=== PATIENT | female | born 1945 | race Caucasian/White ===

== ENCOUNTER 2017-10-22 12:45 | Emergency (ER) | payer OTHER ==
[2017-10-22 13:28] VITALS: BP 169/87; PULSE 82; TEMP 98.8; BMI 25.0
--- NOTE | 2017-10-22 13:36 | PDOC ---
History of Present Illness - General Chief Complaint: Cold Symptoms Stated Complaint: COLD SYMPTYOMS Time Seen by Provider: 10/22/17 13:23 - History of Present Illness Initial Comments: 10/22/17 13:36 Chief complaint: Cough History of present illness: Patient with URI symptoms and nonproductive cough for several days. Began Z-Saurav yesterday. Also taking promethazine with codeine, Mucinex. Review of systems: No chest pain, shortness of breath, abdominal pain, nausea, vomiting, diarrhea, visual or focal neurologic symptoms, unsteadiness of gait. Social/family history reviewed and noncontributory Physical exam: Alert and oriented well-developed well-nourished no acute distress cheerful and cooperative. No tachypnea or dyspnea. Temperature 98.8, respiratory rate 16 and unlabored, O2 saturation 98%. Slightly elevated blood pressure but otherwise vital signs are stable HEENT clear Neck supple without bruit mass or nodes Chest clear to P&A with full breath sounds throughout bilaterally. No wheezes rales or rhonchi. No tachypnea or dyspnea CV S1 and S2 normal without murmur rub or gallop pulses full and symmetric no JVD or edema no tachycardia Abdomen benign Skin clear, no rash, adequate turgor and wet mucous membranes Semis no CCE Neurological intact Impression: Probable viral bronchitis, patient began Z-Saurav yesterday, second dose scheduled for today. She is taking promethazine with codeine cough preparation, as well as Mucinex. She appears to be stable respiratory status Plan: Continue as directed. Expectorant, and cough preparation as needed. Return to ER if there is fever, chest pain, shortness of breath, or other respiratory symptoms. Follow-up with Dr. Carrera in 2 or 3 days. Fully ambulatory and in no distress, respiratory or otherwise, at discharge with her to follow-up as recommended Past History - Past Medical History Allergies/Adverse Reactions: Allergies Allergy/AdvReac Type Severity Reaction Status Date / Time acetaminophen [From Percocet] Allergy Intermediate vomiting Unverified 05/12/13 17:29 latex Allergy Intermediate rash Unverified 05/12/13 17:30 oxycodone HCl [From Percocet] Allergy Intermediate vomiting Unverified 05/12/13 17:29 Home Medications: Ambulatory Orders Aspirin 81 mg PO DAILY 07/13/16 Cholecalciferol (Vitamin D3) [Vitamin D3] 2,000 unit PO 2 daily tablet Glucosam/Chond/Collagen/Hyalur [Glucosamine Chondroitin Cap] 1 each PO DAILY capsule 11/23/16 Azithromycin [Zithromax -] 250 mg PO UTDICT 10/22/17 Cetirizine HCl [Zyrtec -] 10 mg PO DAILY PRN 10/22/17 Fluticasone Prop 0.05% Nasal [Flonase -] 1 - 2 spray NS BID PRN 10/22/17 Guaifenesin [Mucinex] 1,200 mg PO BID PRN 10/22/17 Promethazine HCl/Codeine [Prometh-Codein 6.25-10 mg/5 ml] 5 ml PO QID PRN COPD: No HTN: Yes Hypercholesterolemia: Yes - Suicide/Smoking/Psychosocial Hx Smoking History: Never smoked Hx Alcohol Use: Yes Drug/Substance Use Hx: No Substance Use Type: None *Physical Exam - Vital Signs Last Vital Signs Temp Pulse Resp BP Pulse Ox 98.8 F 82 16 169/87 98 10/22/17 13:19 10/22/17 13:19 10/22/17 13:19 10/22/17 13:19 10/22/17 13:19 *DC/Admit/Observation/Transfer Diagnosis at time of Disposition: Acute bronchitis Qualifiers: Bronchitis organism: unspecified organism Qualified Code(s): J20.9 - Acute bronchitis, unspecified - Discharge Dispostion Disposition: HOME Condition at time of disposition: Stable Admit: No - Referrals Referrals: Kristofer Echevarria MD [Primary Care Provider] - 3 days - Patient Instructions Printed Discharge Instructions: DI for Acute Bronchitis Additional Instructions: Rest, fluids, Tylenol or Motrin, antibiotics as directed, expectorant and cough syrup as needed. Return to ER if there is high fever, chest pain, shortness of breath, or other difficulty breathing. Otherwise follow-up with primary physician in 2-3 days. - Post Discharge Activity
== END 2017-10-22 13:43 | disposition home or self-care (01) ==
LOC: FER 12:45
DX: J20.9 Acute bronchitis, unspecified (principal); I10 Essential (primary) hypertension; E78.00 Pure hypercholesterolemia, unspecified
CPT/HCPCS: 99281-25

== ENCOUNTER 2017-12-28 08:12 | Emergency (ER) | payer OTHER ==
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
[2017-12-28 08:29] VITALS: BP 178/88; PULSE 72; TEMP 98.1
== END 2017-12-28 10:12 | disposition home or self-care (01) ==
LOC: FER 08:12
PROC: 2W3KX1Z Immobilization of Left Finger using Splint (ICD-10-PCS; principal; 2017-12-28)
DX: S63.637A Sprain of interphalangeal joint of left little finger, initial encounter (principal); X58.XXXA Exposure to other specified factors, initial encounter; Y93.89 Activity, other specified; Y92.9 Unspecified place or not applicable; I10 Essential (primary) hypertension; E78.00 Pure hypercholesterolemia, unspecified
CPT/HCPCS: 73140-TC-LT-FY; 99282-25

== ENCOUNTER 2018-09-01 12:53 | Emergency (ER) | payer OTHER ==
[2018-09-01 12:58] VITALS: BP 152/80; PULSE 77; TEMP 98.2; BMI 25.2
--- NOTE | 2018-09-01 13:30 | PDOC ---
History of Present Illness - General Chief Complaint: Respiratory Stated Complaint: COUGH, THROAT PAIN Time Seen by Provider: 09/01/18 13:29 - History of Present Illness Initial Comments: 09/01/18 14:14 Chief complaint: Sore throat History of present illness: Severe sore throat since yesterday. Worse in the morning, improving during the day. No fever/chills. No difficulty swallowing or breathing. No cough or chest pain. Received a flu vaccine early in July. Review of systems: As noted above, in addition, no shortness of breath, abdominal pain, nausea, vomiting, diarrhea, urinary tract symptoms, vaginal bleeding or discharge, visual or focal neurologic symptoms. Remainder systems reviewed and found to be negative Past medical history: Mild hypertension, elevated cholesterol, takes baby aspirin for prophylaxis. History of pneumonia in the past, and seasonal bronchitis Social/family history reviewed and noncontributory Physical exam: Alert and oriented well-developed well-nourished no acute distress cheerful and cooperative Afebrile, vital signs normal HEENT: The throat appears clear. There is no erythema, exudate, swelling, mass, conjunctivae, ears, nose clear Neck supple without bruit mass or nodes Lungs clear with full breath sounds throughout bilaterally. Respiratory rate 12 and unlabored. Oxygen saturation 100%. No sign of tachypnea or dyspnea CV regular without murmur rub or gallop Abdomen benign Skin clear, no rash, good turgor and wet mucous membranes Impression: Viral URI, unlikely influenza due to recent vaccination as well as absence of systemic symptoms. No sign of lower respiratory disease Plan: Throat culture and further medical management depending on results. 09/01/18 14:34 Past History - Past Medical History Allergies/Adverse Reactions: Allergies Allergy/AdvReac Type Severity Reaction Status Date / Time latex Allergy Intermediate rash Verified 09/01/18 12:55 oxycodone HCl [From Percocet] Allergy Intermediate vomiting Verified 09/01/18 12 :55 Home Medications: Ambulatory Orders Cholecalciferol (Vitamin D3) [Vitamin D3] 2,000 unit PO 2 daily tablet Glucosam/Chond/Collagen/Hyalur [Glucosamine Chondroitin Cap] 1 each PO DAILY capsule 11/23/16 Aspirin [ASA -] 81 mg PO DAILY 12/28/17 Ibuprofen 600 mg PO QID PRN #20 tablet 11/11/18 COPD: No HTN: Yes Hypercholesterolemia: Yes - Surgical History Appendectomy: Yes - Suicide/Smoking/Psychosocial Hx Smoking History: Never smoked Have you smoked in the past 12 months: No Information on smoking cessation initiated: No Hx Alcohol Use: (nightly) Drug/Substance Use Hx: No Substance Use Type: None *Physical Exam - Vital Signs Last Vital Signs Temp Pulse Resp BP Pulse Ox 98.2 F 77 18 152/80 96 09/01/18 12:53 09/01/18 12:53 09/01/18 12:53 09/01/18 12:53 09/01/18 12:53 Medical Decision Making - Medical Decision Making 09/01/18 14:35 Throat culture negative Most likely viral pharyngitis, mild, no evidence of lower respiratory infection Symptomatic treatment and follow-up. *DC/Admit/Observation/Transfer Diagnosis at time of Disposition: Viral pharyngitis - Discharge Dispostion Disposition: HOME Condition at time of disposition: Stable Decision to Admit order: No - Prescriptions Prescriptions: Ibuprofen 600 mg PO QID PRN #20 tablet PRN Reason: Pain - Referrals Referrals: Kristofer Echevarria MD [Primary Care Provider] - 3 days - Patient Instructions Printed Discharge Instructions: DI for Viral Pharyngitis - Post Discharge Activity Forms/Work/School Notes: Back to Work
[2018-09-01] MEDS ORDERED: IBUPROFEN 600 MG TABLET (FP) PO ONE ×2 (14:32→14:41)
== END 2018-09-01 14:50 | disposition home or self-care (01) ==
LOC: FER 12:53
DX: J02.8 Acute pharyngitis due to other specified organisms (principal); B97.89 Other viral agents as the cause of diseases classified elsewhere; I10 Essential (primary) hypertension; E78.00 Pure hypercholesterolemia, unspecified
CPT/HCPCS: 87070; 87430; 99283-25

== ENCOUNTER 2021-09-22 01:05 | Inpatient (IN) | payer OTHER ==
[2021-09-22] MEDS ORDERED: ACETAMINOPHEN 1000 MG/100 ML BAG IVPB ONE (01:52)
[2021-09-22] MEDS ORDERED: SODIUM CHLORIDE 0.9% 1000 ML INFUS.BAG IV ONE (01:52)
[2021-09-22] MEDS ORDERED: ONDANSETRON 4 MG/2 ML VIAL IVPUSH ONE ×2 (01:52→05:17)
[2021-09-22] MEDS ORDERED: ONDANSETRON 4 MG/2 ML VIAL ONE (02:05)
[2021-09-22] MEDS ORDERED: ACETAMINOPHEN INJECTION 100 ML IVPB ONE (02:05)
[2021-09-22 02:17] LABS: EPI CELLS 4 /uL (0-25.1); HYALINE CASTS 1 /uL (0-3.1); URINE APPEARANCE CLOUDY; URINE BACTERIA 7 /uL (0-1359); URINE BILIRUBIN NEGATIVE (NEGATIVE); URINE COLOR ORANGE; URINE GLUCOSE (UA) NEGATIVE (NEGATIVE); URINE KETONE TRACE (NEGATIVE); URINE LEUK ESTERASE TRACE (NEGATIVE); URINE NITRITE NEGATIVE (NEGATIVE); URINE PROTEIN 1+ (NEGATIVE); URINE RBC 3777 /uL (0-23.9); URINE UROBILINOGEN 0.2 mg/dL (0.2-1.0); URINE WBC 34 /uL (0-25.8)
[2021-09-22 02:27] LABS: HEMATOCRIT 41.5 % (32.4-45.2); MCH 31.9 pg (25.7-33.7); MCHC 33.7 g/dl (32.0-36.0); MEAN CELL VOLUME 94.7 fl (80-96); MEAN PLT VOLUME 7.8 fl (7.5-11.1); PLATELET COUNT 203 10^3/uL (134-434); RBC 4.38 M/mm3 (3.60-5.2); RDW 13.3 % (11.6-15.6); WHITE BLOOD COUNT 10.9 K/mm3 (4.0-10.0)
[2021-09-22 02:35] LABS: PROTHROMBIN TIME (PATIENT) 11.2 SEC (9.7-13.0)
[2021-09-22 02:37] LABS: ACTIVATED PTT 27.9 SECONDS (25.2-36.5)
[2021-09-22 02:48] LABS: CHLORIDE 109 mmol/L (98-107); SODIUM 144 mmol/L (136-145)
[2021-09-22 02:52] LABS: ALBUMIN 3.5 g/dl (3.4-5.0); ANION GAP 11 MMOL/L (8-16); BLOOD UREA NITROGEN 24.3 mg/dL (7-18); CALCIUM 9.9 mg/dL (8.5-10.1); CO2 24 mmol/L (21-32); GLUCOSE,RANDOM 128 mg/dL (74-106); LIPASE 220 U/L (73-393)
[2021-09-22 02:55] LABS: CREATININE 1.2 mg/dL (0.55-1.3); SGOT/AST 23 U/L (15-37); SGPT/ALT 29 U/L (13-61)
[2021-09-22 02:57] LABS: BILIRUBIN,TOTAL 0.4 mg/dL (0.2-1); TOT PROT 7.4 g/dl (6.4-8.2)
[2021-09-22 02:58] LABS: ALK PHOS 89 U/L (45-117)
[2021-09-22] MEDS ORDERED: CEFTRIAXONE 1,000 MG in DEXTROSE 5%-WATER - 50 ML IVPB ONE (03:39)
[2021-09-22] MEDS ORDERED: CEFTRIAXONE 1 GM/50 ML BAG ONE (03:48)
[2021-09-22] MEDS ORDERED: SODIUM CHLORIDE 1,000 ML IV SCH (05:15)
[2021-09-22] MEDS ORDERED: ONDANSETRON 4 MG/2 ML VIAL IVPUSH PRN (05:17)
[2021-09-22] MEDS ORDERED: TAMSULOSIN HCL 0.4 MG CAP PO ONE (05:18)
[2021-09-22] MEDS ORDERED: TAMSULOSIN HCL 0.4 MG CAP ONE ×2 (05:24→10:58)
[2021-09-22 06:23] LABS: OVALOCYTE 1+; TEAR DROP CELLS 1+
[2021-09-22] MEDS ORDERED: ENOXAPARIN NA (PORCINE) 40 MG/0.4 ML DISP.SYRIN SQ SCH (10:00)
[2021-09-22] MEDS: TAMSULOSIN HCL 0.4 MG CAP PO SCH (10:59)
[2021-09-22] MEDS: LACTATED RINGERS SOLUTION 1,000 ML/1,000 ML INFUS.BAG IV SCH (11:02)
[2021-09-22] MEDS: QUINAPRIL HCL 20 MG TABLET PO SCH (11:16)
[2021-09-22 14:04] VITALS: BMI 24.9
[2021-09-22] MEDS: KETOROLAC TROMETHAMINE 15 MG/ML VIAL IVPUSH PRN (19:18)
[2021-09-23] MEDS: LACTATED RINGERS SOLUTION 1,000 ML/1,000 ML INFUS.BAG IV SCH ×2 (01:11→17:47)
[2021-09-23] MEDS: KETOROLAC TROMETHAMINE 15 MG/ML VIAL IVPUSH PRN (08:57)
[2021-09-23] MEDS: TAMSULOSIN HCL 0.4 MG CAP PO SCH (08:59)
[2021-09-23 09:59] LABS: BASO % 0.2 % (0-2.0); EOS % 0.8 % (0-4.5); HEMATOCRIT 37.4 % (32.4-45.2); HEMOGLOBIN 12.7 GM/dL (10.7-15.3); LYMPH % 9.8 % (8-40); MCH 32.5 pg (25.7-33.7); MCHC 33.9 g/dl (32.0-36.0); MEAN CELL VOLUME 95.8 fl (80-96); MEAN PLT VOLUME 8.2 fl (7.5-11.1); MONO % 7.4 % (3.8-10.2); NEUT % 81.8 % (42.8-82.8); PLATELET COUNT 178 10^3/uL (134-434); RDW 13.4 % (11.6-15.6); WHITE BLOOD COUNT 9.4 K/mm3 (4.0-10.0)
[2021-09-23 10:39] LABS: CALCIUM 9.6 mg/dL (8.5-10.1)
[2021-09-23 10:43] LABS: BLOOD UREA NITROGEN 19.7 mg/dL (7-18); CREATININE 1.3 mg/dL (0.55-1.3); PHOSPHOROUS 2.9 mg/dL (2.5-4.9)
[2021-09-23] MEDS ORDERED: GLYCERIN 1 RECTAL SUPPOSITORY, ADULT RC ONE (10:45)
[2021-09-23] MEDS ORDERED: cefTRIAXone SODIUM 1 GM VIAL ONE (11:31)
[2021-09-23] MEDS ORDERED: DEXTROSE 5%-WATER - 50 ML IVPB ONE (11:31)
[2021-09-23] MEDS: CEFTRIAXONE 1 GM in DEXTROSE 5%-WATER - 50 ML IVPB SCH (11:45)
[2021-09-23] MEDS: QUINAPRIL HCL 20 MG TABLET PO SCH (11:45)
[2021-09-23] MEDS ORDERED: MIDAZOLAM HCL 2 MG/2 ML SINGLE DOSE VIAL ONE (13:20)
[2021-09-23] MEDS ORDERED: ONDANSETRON 4 MG/2 ML VIAL IVPUSH PRN (13:23)
[2021-09-23] MEDS ORDERED: LACTATED RINGERS SOLUTION 1,000 ML IV SCH (13:30)
[2021-09-23] MEDS ORDERED: DEXAMETHASONE SOD PHOSPHATE 4 MG/1 ML VIAL ONE (13:58)
[2021-09-23] MEDS ORDERED: PROPOFOL 20 ML ONE (13:58)
[2021-09-23] MEDS ORDERED: LIDOCAINE HCL/PF 2% SDV 5ML VIAL ONE (13:58)
[2021-09-23] MEDS ORDERED: KETOROLAC TROMETHAMINE 30 MG/1 ML VIAL ONE (13:58)
[2021-09-23] MEDS: ACETAMINOPHEN 1000 MG/100 ML BAG IVPB ONE ×2 (15:05→18:40)
[2021-09-23] MEDS: LACTATED RINGERS SOLUTION 1,000 ML IV SCH (18:57)
[2021-09-23] MEDS: ATORVASTATIN CA 10 MG TABLET (FP) PO SCH ×2 (21:57→22:02)
[2021-09-24] MEDS: LACTATED RINGERS SOLUTION 1,000 ML IV SCH (02:56)
[2021-09-24] MEDS ORDERED: PRAVASTATIN SODIUM PO SCH (10:00)
[2021-09-24] MEDS ORDERED: PT OWN MED DRAWER 7, Y5N ONE (10:14)
[2021-09-24] MEDS ORDERED: cefTRIAXone SODIUM 1 GM VIAL ONE (10:15)
[2021-09-24] MEDS ORDERED: DEXTROSE 5%-WATER - 50 ML IVPB ONE (10:15)
[2021-09-24] MEDS: TAMSULOSIN HCL 0.4 MG CAP PO SCH (11:10)
[2021-09-24] MEDS: QUINAPRIL HCL 20 MG TABLET PO SCH (11:10)
[2021-09-24] MEDS: CEFTRIAXONE 1 GM in DEXTROSE 5%-WATER - 50 ML IVPB SCH (11:11)
[2021-09-24 11:17] LABS: BASO % 0.2 % (0-2.0); EOS % 0.2 % (0-4.5); HEMATOCRIT 38.4 % (32.4-45.2); HEMOGLOBIN 13.1 GM/dL (10.7-15.3); LYMPH % 12.4 % (8-40); MCH 32.6 pg (25.7-33.7); MCHC 34.2 g/dl (32.0-36.0); MEAN CELL VOLUME 95.4 fl (80-96); MEAN PLT VOLUME 8.2 fl (7.5-11.1); MONO % 7.3 % (3.8-10.2); NEUT % 79.9 % (42.8-82.8); PLATELET COUNT 197 10^3/uL (134-434); RBC 4.02 M/mm3 (3.60-5.2); WHITE BLOOD COUNT 9.7 K/mm3 (4.0-10.0)
[2021-09-24] MEDS ORDERED: amLODIPine BESYLATE 5 MG TABLET (FP) PO ONE (11:45)
[2021-09-24 11:51] LABS: CALCIUM 9.9 mg/dL (8.5-10.1)
[2021-09-24 11:52] LABS: BLOOD UREA NITROGEN 16.6 mg/dL (7-18); PHOSPHOROUS 2.2 mg/dL (2.5-4.9)
[2021-09-24 11:55] LABS: CREATININE 0.9 mg/dL (0.55-1.3)
[2021-09-24] MEDS ORDERED: LABETALOL HCL 200 MG TABLET (FP) PO ONE (16:38)
[2021-09-24] MEDS: ATORVASTATIN CA 10 MG TABLET (FP) PO SCH (21:25)
[2021-09-24] MEDS ORDERED: LABETALOL HCL 100 MG TABLET (FP) PO SCH (22:00)
[2021-09-24] MEDS ORDERED: GLYCERIN 1 RECTAL SUPPOSITORY, ADULT PR ONE (22:42)
[2021-09-25] MEDS ORDERED: LABETALOL HCL 100 MG TABLET (FP) PO ONE (02:02)
[2021-09-25] MEDS ORDERED: LABETALOL HCL 200 MG TABLET (FP) PO SCH (10:00)
[2021-09-25] MEDS ORDERED: LABETALOL HCL 100 MG TABLET (FP) PO SCH (10:00)
[2021-09-25] MEDS ORDERED: PT OWN MED DRAWER 7, Y5N ONE (10:12)
[2021-09-25] MEDS ORDERED: DEXTROSE 5%-WATER - 50 ML IVPB ONE (10:13)
[2021-09-25] MEDS ORDERED: cefTRIAXone SODIUM 1 GM VIAL ONE (10:13)
[2021-09-25] MEDS: TAMSULOSIN HCL 0.4 MG CAP PO SCH (10:22)
[2021-09-25] MEDS: QUINAPRIL HCL 20 MG TABLET PO SCH (10:22)
[2021-09-25] MEDS: CEFTRIAXONE 1 GM in DEXTROSE 5%-WATER - 50 ML IVPB SCH (10:22)
[2021-09-25 13:55] VITALS: BP 142/82; PULSE 76; TEMP 98.9
[2021-09-25] MEDS ORDERED: MAGNESIUM HYDROX 2400MG/30ML ORAL SUSPENSION 30 ML CUP PO ONE (14:15)
== END 2021-09-25 18:24 | disposition home or self-care (01) | DRG 661 ==
LOC: JER 01:05 → SUATTDRO 01:05 → JERBED 03:38 → J5S 11:57
PROVIDERS: ADMIT Internal Medicine; ATTEND Internal Medicine
PROC: 0TC78ZZ Extirpation of Matter from Left Ureter, Via Natural or Artificial Opening Endoscopic (ICD-10-PCS; principal; 2021-09-23 12:00)
PROC: 0T778DZ Dilation of Left Ureter with Intraluminal Device, Via Natural or Artificial Opening Endoscopic (ICD-10-PCS; 2021-09-23 12:00)
PROC: BT1FZZZ Fluoroscopy of Left Kidney, Ureter and Bladder (ICD-10-PCS; 2021-09-23 12:00)
DX: N13.2 Hydronephrosis with renal and ureteral calculous obstruction (principal); I10 Essential (primary) hypertension; E78.5 Hyperlipidemia, unspecified; R31.9 Hematuria, unspecified; K59.00 Constipation, unspecified
CPT/HCPCS: 36415; 74176-TC; 76000-TC-FY; 80048; 80053; 81003; 83605; 83690; 83735; 84100; 84484; 85025; 85610; 85730; 86850; 86900; 86901; 87086; 93005; 93010; 94760; 99285-25; C9803; J0131; U0003; U0005

== ENCOUNTER 2021-09-29 14:52 | Emergency (ER) | payer OTHER ==
[2021-09-29 15:51] VITALS: BMI 23.8
[2021-09-29] MEDS ORDERED: CEFTRIAXONE 1,000 MG in DEXTROSE 5%-WATER - 50 ML IVPB ONE (16:05)
[2021-09-29] MEDS ORDERED: CEFTRIAXONE 1 GM/50 ML BAG ONE (16:31)
[2021-09-29 17:43] LABS: EPI CELLS 12 /uL (0-25.1); HYALINE CASTS 2 /uL (0-3.1); URINE APPEARANCE CLEAR; URINE BACTERIA 9 /uL (0-1359); URINE BILIRUBIN NEGATIVE (NEGATIVE); URINE COLOR YELLOW; URINE GLUCOSE (UA) NEGATIVE (NEGATIVE); URINE KETONE NEGATIVE (NEGATIVE); URINE LEUK ESTERASE 1+ (NEGATIVE); URINE NITRITE NEGATIVE (NEGATIVE); URINE PROTEIN 2+ (NEGATIVE); URINE RBC 1386 /uL (0-23.9); URINE UROBILINOGEN 0.2 mg/dL (0.2-1.0); URINE WBC 163 /uL (0-25.8)
[2021-09-29 19:04] VITALS: BP 118/58; PULSE 72; TEMP 97.8
== END 2021-09-29 19:06 | disposition home or self-care (01) ==
LOC: JER 14:52
PROC: 3E033GC Introduction of Other Therapeutic Substance into Peripheral Vein, Percutaneous Approach (ICD-10-PCS; principal; 2021-09-29)
DX: N13.30 Unspecified hydronephrosis (principal)
CPT/HCPCS: 74176-TC; 81003; 87086; 99285-25

== ENCOUNTER 2022-08-19 08:22 | Inpatient (IN) | payer OTHER ==
[2022-08-19] MEDS ORDERED: ACETAMINOPHEN 1000 MG/100 ML BAG IVPB ONE (09:00)
[2022-08-19] MEDS ORDERED: SODIUM CHLORIDE 0.9% 500 ML INFUS.BAG IV ONE (09:00)
[2022-08-19] MEDS ORDERED: KETOROLAC TROMETHAMINE 15 MG/ML VIAL IM ONE (09:07)
[2022-08-19] MEDS ORDERED: KETOROLAC TROMETHAMINE 15 MG/ML VIAL IVPUSH ONE ×2 (09:29→16:38)
[2022-08-19] MEDS ORDERED: KETOROLAC TROMETHAMINE 15 MG/ML VIAL ONE ×2 (09:53→17:31)
[2022-08-19] MEDS ORDERED: ONDANSETRON 4 MG/2 ML VIAL IVPUSH ONE (10:06)
[2022-08-19] MEDS ORDERED: ONDANSETRON 4 MG/2 ML VIAL ONE (10:09)
[2022-08-19 10:13] LABS: HEMATOCRIT 40.9 % (32.4-45.2); MCH 32.6 pg (25.7-33.7); MCHC 34.2 g/dl (32.0-36.0); MEAN CELL VOLUME 95.2 fl (80-96); MEAN PLT VOLUME 7.8 fl (7.5-11.1); RDW 13.2 % (11.6-15.6); WHITE BLOOD COUNT 12.8 K/mm3 (4.0-10.0)
[2022-08-19 10:22] LABS: INR 1.05 (0.83-1.09); PROTHROMBIN TIME (PATIENT) 12.1 SEC (9.7-13.0)
[2022-08-19 10:24] LABS: ACTIVATED PTT 31.2 SECONDS (25.2-36.5)
[2022-08-19 10:25] LABS: ALBUMIN 3.8 g/dl (3.4-5.0); BLOOD UREA NITROGEN 15.5 mg/dL (7-18); CALCIUM 10.4 mg/dL (8.5-10.1); MAGNESIUM 1.9 mg/dL (1.8-2.4)
[2022-08-19 10:28] LABS: CREATININE 0.9 mg/dL (0.55-1.3)
[2022-08-19 10:30] LABS: BILIRUBIN,TOTAL 0.5 mg/dL (0.2-1); TOT PROT 7.5 g/dl (6.4-8.2)
[2022-08-19] MEDS ORDERED: ACETAMINOPHEN INJECTION 100 ML IVPB ONE (11:11)
[2022-08-19 11:13] LABS: ANISOCYTOSIS 0; HELMET CELLS 0; HOWELL-JOLLY BODIES 0; MACROCYTOSIS 0; OVALOCYTE 0; ROULEAU 0; SICKELED CELLS 0; TARGET CELLS 0; TEAR DROP CELLS 0; TOXIC GRANULATION 0
[2022-08-19 11:38] LABS: PLATELET COUNT 197 10^3/uL (134-434)
[2022-08-19 11:44] LABS: EPI CELLS 3 /uL (0-25.1); HYALINE CASTS 0 /uL (0-3.1); PH,URINE 6.5 (5.0-8.0); URINE APPEARANCE CLEAR; URINE BACTERIA 5 /uL (0-1359); URINE BILIRUBIN NEGATIVE (NEGATIVE); URINE COLOR YELLOW; URINE GLUCOSE (UA) NEGATIVE (NEGATIVE); URINE KETONE 1+ (NEGATIVE); URINE LEUK ESTERASE NEGATIVE (NEGATIVE); URINE NITRITE NEGATIVE (NEGATIVE); URINE PROTEIN 1+ (NEGATIVE); URINE RBC 34 /uL (0-23.9); URINE UROBILINOGEN 0.2 mg/dL (0.2-1.0); URINE WBC 6 /uL (0-25.8)
[2022-08-19] MEDS: QUINAPRIL HCL 20 MG TABLET PO SCH (18:25)
[2022-08-19 20:23] VITALS: BMI 25.4
[2022-08-19] MEDS: LABETALOL HCL 200 MG TABLET (FP) PO SCH (22:15)
[2022-08-20] MEDS ORDERED: LACTATED RINGERS SOLUTION 1,000 ML IV SCH (07:45)
[2022-08-20] MEDS ORDERED: TAMSULOSIN HCL 0.4 MG CAP PO SCH (08:30)
[2022-08-20] MEDS: LABETALOL HCL 200 MG TABLET (FP) PO SCH ×2 (09:30→21:33)
[2022-08-20 09:34] LABS: BASO % 0.6 % (0-2.0); EOS % 1.6 % (0-4.5); HEMATOCRIT 37.8 % (32.4-45.2); HEMOGLOBIN 12.7 GM/dL (10.7-15.3); LYMPH % 17.8 % (8-40); MCH 31.9 pg (25.7-33.7); MCHC 33.7 g/dl (32.0-36.0); MEAN CELL VOLUME 94.6 fl (80-96); MONO % 8.1 % (3.8-10.2); NEUT % 71.9 % (42.8-82.8); PLATELET COUNT 209 10^3/uL (134-434); RDW 13.2 % (11.6-15.6); WHITE BLOOD COUNT 6.4 K/mm3 (4.0-10.0)
[2022-08-20 09:37] LABS: ALBUMIN 3.1 g/dl (3.4-5.0); CALCIUM 9.2 mg/dL (8.5-10.1); MAGNESIUM 1.8 mg/dL (1.8-2.4)
[2022-08-20 09:39] LABS: BLOOD UREA NITROGEN 18.8 mg/dL (7-18)
[2022-08-20 09:41] LABS: CREATININE 0.9 mg/dL (0.55-1.3); PHOSPHOROUS 2.9 mg/dL (2.5-4.9)
[2022-08-20 09:43] LABS: BILIRUBIN,TOTAL 0.5 mg/dL (0.2-1); TOT PROT 6.2 g/dl (6.4-8.2)
[2022-08-20] MEDS ORDERED: ENOXAPARIN NA (PORCINE) 40 MG/0.4 ML DISP.SYRIN SQ SCH (10:00)
[2022-08-20] MEDS ORDERED: CEFTRIAXONE 1 GM in DEXTROSE 5%-WATER - 50 ML IVPB SCH (10:00)
[2022-08-20] MEDS: INSULIN SLIDING SCALE (NOVOLOG) 1 VIAL SQ SCH ×3 (12:01→21:41)
[2022-08-20] MEDS: QUINAPRIL HCL 20 MG TABLET PO SCH (12:11)
[2022-08-20] MEDS ORDERED: MIDAZOLAM HCL 2 MG/2 ML SINGLE DOSE VIAL ONE (15:38)
[2022-08-20] MEDS ORDERED: ONDANSETRON 4 MG/2 ML VIAL ONE (15:38)
[2022-08-20] MEDS ORDERED: PROPOFOL 20 ML ONE (15:38)
[2022-08-20] MEDS ORDERED: KETOROLAC TROMETHAMINE 30 MG/1 ML VIAL ONE (15:38)
[2022-08-20] MEDS ORDERED: DEXAMETHASONE SOD PHOSPHATE 4 MG/1 ML VIAL ONE (15:38)
[2022-08-20] MEDS ORDERED: LIDOCAINE HCL/PF 2% SDV 5ML VIAL ONE (15:39)
[2022-08-20] MEDS ORDERED: ceFAZolin SODIUM 1 GM VIAL ONE (16:00)
[2022-08-20] MEDS ORDERED: ceFAZolin SODIUM 1 GM VIAL IVPB ONE (16:07)
[2022-08-20] MEDS ORDERED: ONDANSETRON 4 MG/2 ML VIAL IVPUSH PRN (17:00)
[2022-08-20] MEDS ORDERED: oxyCODONE HCL 5 MG TABLET PO PRN (17:00)
[2022-08-20] MEDS ORDERED: PROMETHAZINE HCL 25 MG/1 ML VIAL IVPUSH PRN (17:00)
[2022-08-20] MEDS: LACTATED RINGERS SOLUTION 1,000 ML IV SCH (21:31)
[2022-08-20] MEDS: ATORVASTATIN CA 10 MG TABLET (FP) PO SCH (21:32)
[2022-08-20] MEDS ORDERED: ATORVASTATIN CA 10 MG TABLET (FP) PO SCH (22:00)
[2022-08-21] MEDS: INSULIN SLIDING SCALE (NOVOLOG) 1 VIAL SQ SCH ×4 (06:47→21:49)
[2022-08-21] MEDS: LABETALOL HCL 200 MG TABLET (FP) PO SCH ×2 (09:22→21:49)
[2022-08-21] MEDS: TAMSULOSIN HCL 0.4 MG CAP PO SCH (09:23)
[2022-08-21] MEDS: QUINAPRIL HCL 20 MG TABLET PO SCH (09:26)
[2022-08-21] MEDS: ENOXAPARIN NA (PORCINE) 40 MG/0.4 ML DISP.SYRIN SQ SCH (09:26)
[2022-08-21] MEDS: CEFTRIAXONE 1 GM in DEXTROSE 5%-WATER - 50 ML IVPB SCH (09:27)
[2022-08-21 10:41] LABS: BASO % 0.4 % (0-2.0); EOS % 0.9 % (0-4.5); HEMATOCRIT 37.3 % (32.4-45.2); HEMOGLOBIN 12.5 GM/dL (10.7-15.3); LYMPH % 16.6 % (8-40); MCH 31.9 pg (25.7-33.7); MCHC 33.7 g/dl (32.0-36.0); MEAN CELL VOLUME 94.9 fl (80-96); MEAN PLT VOLUME 8.1 fl (7.5-11.1); NEUT % 72.1 % (42.8-82.8); PLATELET COUNT 201 10^3/uL (134-434); RBC 3.93 M/mm3 (3.60-5.2); WHITE BLOOD COUNT 8.7 K/mm3 (4.0-10.0)
[2022-08-21 11:02] LABS: BLOOD UREA NITROGEN 21.5 mg/dL (7-18)
[2022-08-21 11:05] LABS: CREATININE 0.8 mg/dL (0.55-1.3)
[2022-08-21] MEDS: LACTATED RINGERS SOLUTION 1,000 ML IV SCH ×2 (18:09→22:47)
[2022-08-21] MEDS: ATORVASTATIN CA 10 MG TABLET (FP) PO SCH (21:49)
[2022-08-22] MEDS: INSULIN SLIDING SCALE (NOVOLOG) 1 VIAL SQ SCH ×3 (06:24→16:53)
[2022-08-22] MEDS: ENOXAPARIN NA (PORCINE) 40 MG/0.4 ML DISP.SYRIN SQ SCH (10:10)
[2022-08-22] MEDS: QUINAPRIL HCL 20 MG TABLET PO SCH (10:11)
[2022-08-22] MEDS: LABETALOL HCL 200 MG TABLET (FP) PO SCH (10:11)
[2022-08-22] MEDS: TAMSULOSIN HCL 0.4 MG CAP PO SCH (10:12)
[2022-08-22] MEDS: CEFTRIAXONE 1 GM in DEXTROSE 5%-WATER - 50 ML IVPB SCH (10:13)
[2022-08-22 15:38] VITALS: BP 153/83; PULSE 74; RESP 18; TEMP 99.4
[2022-08-22] MEDS ORDERED: LABETALOL HCL 100 MG TABLET (FP) PO SCH (22:00)
== END 2022-08-22 17:26 | disposition home or self-care (01) | DRG 661 ==
LOC: JER 08:22 → JERBED 09:01 → J8W 19:32
PROVIDERS: ADMIT Family Medicine; ATTEND Internal Medicine
PROC: BT1FZZZ Fluoroscopy of Left Kidney, Ureter and Bladder (ICD-10-PCS; 2022-08-20)
PROC: 0TC78ZZ Extirpation of Matter from Left Ureter, Via Natural or Artificial Opening Endoscopic (ICD-10-PCS; principal; 2022-08-20 14:00)
PROC: 0T778DZ Dilation of Left Ureter with Intraluminal Device, Via Natural or Artificial Opening Endoscopic (ICD-10-PCS; 2022-08-20 14:00)
DX: N13.2 Hydronephrosis with renal and ureteral calculous obstruction (principal); I10 Essential (primary) hypertension; E78.5 Hyperlipidemia, unspecified
CPT/HCPCS: 36415; 74176-TC; 76000-TC-FY; 80048; 80053; 81003; 82962; 83735; 84100; 85025; 85610; 85730; 86850; 86900; 86901; 87086; 93005; 93010; 94760; 99285-25; C1769; C2617; C9803-CS; U0003; U0005

== ENCOUNTER 2023-07-21 13:26 | Emergency (ER) | payer OTHER ==
[2023-07-21 13:45] VITALS: BP 180/93; PULSE 86; RESP 18; TEMP 100.8; BMI 25.8
[2023-07-21] MEDS ORDERED: ACETAMINOPHEN 500 MG TABLET (FP) PO ONE (14:01)
[2023-07-21] MEDS ORDERED: ACETAMINOPHEN 325 MG TABLET (FP) ONE (14:21)
== END 2023-07-21 14:24 | disposition home or self-care (01) ==
LOC: FER 13:26
DX: R50.9 Fever, unspecified (principal); J02.9 Acute pharyngitis, unspecified; U07.1 COVID-19; R05.9 Cough, unspecified; R09.81 Nasal congestion
CPT/HCPCS: 99283-25